=== PATIENT | male | born 2000 | race Caucasian/White ===

== ENCOUNTER 2020-03-07 14:52 | Emergency (ER) | payer BC ==
[~2020-03-07] VITALS: Ht 193 cm; Wt 75.0 kg
[2020-03-07 15:12] VITALS: BP 131/76
--- NOTE | 2020-03-07 15:31 | REP ---
Clinical: Trauma with loss of consciousness . Comparison: None . Findings: The ventricles, sulci, and cisterns are normal in position and appearance. Montes De Oca-white differentiation is maintained. No acute intracranial hemorrhage, mass/mass effect, pathology or trauma/injury. No evidence for acute infarction. No extra-axial fluid collection. Calvarium is intact. Paranasal sinuses and mastoid air cells are clear. Impression: Normal noncontrast head CT. No evidence for acute intracranial pathology or trauma/injury. Electronically Signed by Capo Cabezas MD 03/07/2020 03:23 P
--- NOTE | 2020-03-07 15:33 | REP ---
Clinical: Trauma. Technique: Two views of the left clavicle. Findings: Comminuted left mid clavicular shaft fracture noted. Impression: Comminuted mid left clavicular shaft fracture. Electronically Signed by Capo Cabezas MD 03/07/2020 03:24 P
[2020-03-07] MEDS ORDERED: NORC1TAB7 PO (15:44)
== END 2020-03-07 16:21 | disposition home or self-care (01) ==
LOC: M ED 14:52 → EDBD 14:52 → M ED 16:21
DX: S30.811A Abrasion of abdominal wall, initial encounter (principal); S42.022A Displaced fracture of shaft of left clavicle, initial encounter for closed fracture; S06.0X9A Concussion with loss of consciousness of unspecified duration, initial encounter; V18.0XXA Pedal cycle driver injured in noncollision transport accident in nontraffic accident, initial encounter; Y92.099 Unspecified place in other non-institutional residence as the place of occurrence of the external cause; Y93.55 Activity, bike riding; Y99.9 Unspecified external cause status; Z88.0 Allergy status to penicillin